=== PATIENT | female | born 1970 | race Hispanic/Latino ===

== ENCOUNTER 2021-06-18 11:26 | Emergency (ER) | payer BC ==
[2021-06-18 12:03] LABS: Urine Blood Negative (Negative); Urine Glucose Negative (Negative); Urine Protein Negative (Negative)
[2021-06-18 12:36] LABS: Basophils % 0.7 % (0-1.3); Hematocrit 38.6 % (36.0-45.0); Lymphocytes % 23.7 % (15.3-44.8); MPV 11.5 fL (7.6-11.3); RBC Red Blood Cell Count 4.14 M/uL (3.86-4.86)
[2021-06-18] MEDS ORDERED: MORPHINE 4 MG/ML SYR ONE (12:47)
[2021-06-18] MEDS ORDERED: ONDANSETRON 4 MG/2 ML VIAL ONE (12:47)
[2021-06-18 12:51] LABS: ALT/SGPT 41 U/L (12-78); AST/SGOT 22 U/L (15-37); Albumin 3.3 g/dL (3.4-5.0); Alkaline Phosphatase 72 U/L (45-117); BUN Blood Urea Nitrogen 8 mg/dL (7-18); Bicarbonate 25 mmol/L (21-32); Bilirubin Direct < 0.1 mg/dL (0-0.2); Bilirubin Total 0.4 mg/dL (0.2-1.0); Glucose Level 99 mg/dL (74-106); Lipase 78 U/L (73-393); Potassium 3.8 mmol/L (3.5-5.1); Sodium Level 140 mmol/L (136-145)
[2021-06-18] MEDS ORDERED: DIPHENHYDRAMINE 50 MG/ML VIAL ONE (12:55)
--- NOTE | 2021-06-18 13:22 | RAD REPORT ---
EXAM DESCRIPTION: CTAbdomen Pelvis W Contrast - 06/18/2021 1:11 pm CLINICAL HISTORY: Abdominal pain. ABD PAIN COMPARISON: No comparisons TECHNIQUE: Biphasic CT imaging of the abdomen and pelvis was performed with 100 ml non-ionic IV cont rast. All CT scans are performed using dose optimization technique as appropriate and may include automated exposure control or mA/KV adjustment according to patient size. FINDINGS: The lung bases are clear. The liver demonstrates diffuse fatty infiltration. Spleen, pancreas, adrenal glands and kidneys are w ithin normal limits. No bowel obstruction, free air, free fluid or abscess. Small to moderate umbilical hernia is present containing fat and small amount of localized fluid measuring 12 mm. The appendix is normal. No evide nce of significant lymphadenopathy. No suspicious bony findings. IMPRESSION: No acute intra-abdominal or pelvic finding. Fatty liver. Moderate umbilical hernia containing fat and a small amount of localized fluid.
[2021-06-18] MEDS ORDERED: FENTANYL CITR 100 MCG/2 ML ONE (14:27)
[2021-06-18] MEDS ORDERED: DIAZEPAM 10 MG/2 ML INJ SYRINGE ONE (14:28)
[2021-06-18] MEDS ORDERED: KETOROLAC 30 MG/ML INJ ONE (14:28)
--- NOTE | 2021-06-18 14:47 | ER ---
Nurse's Notes [facility] Name: Liliane Mishra Age: 51 yrs Sex: Female : 1970 Arrival Date: 06/18/2021 Time: 11:27 Bed 28 Private MD: Diagnosis: Umbilical hernia without obstruction or gangrene Presentation: 06/18 11:40 Chief complaint: Patient states: i am having pain in my stomach and it started Wednesday. tw2 I called Dr. Agrawal over the phone because i am unvaccinated. i felt numb on Wednesday but the pain got worse. +N I am going to have an endoscopy Wednesday but the pain is worse. i also feel bloated. Coronavirus screen: At this time, the client does not indicate any symptoms associated with coronavirus-19. Ebola Screen: Patient denies travel to an Ebola-affected area in the 21 days before illness onset. Initial Sepsis Screen: Does the patient meet any 2 criteria? No. Patient's initial sepsis screen is negative. Does the patient have a suspected source of infection? No. Patient's initial sepsis screen is negative. Risk Assessment: Do you want to hurt yourself or someone else? Patient reports no desire to harm self or others. Onset of symptoms was June 18, 2021. 11:40 Method Of Arrival: Ambulatory tw2 11:40 Acuity: PALAK 3 tw2 Triage Assessment: 11:43 General: Appears in no apparent distress. uncomfortable, obese, Behavior is calm, tw2 cooperative, appropriate for age. Pain: Complains of pain in abdomen. GI: Reports lower abdominal pain, nausea. HEAD OF PHYSICS: 15:18 LMP N/A - tw2 Historical: - Allergies: 11:43 No Known Allergies; tw2 - Home Meds: 11:43 None [Active]; tw2 - PMHx: 11:43 None; tw2 - PSHx: 11:43 section; tw2 - Immunization history:: Client reports having NOT received the Covid vaccine. - Social history:: Smoking status: Patient denies any tobacco usage or history of. Screenin:47 Abuse screen: Denies threats or abuse. Nutritional screening: No deficits noted. tw2 Tuberculosis screening: No symptoms or risk factors identified. Fall Risk None identified. Assessment: 12:09 GI: Reports lower abdominal pain, upper abdominal pain, nausea, pt denies vomiting. Pt oh consistently pressing on her stomach. when ask if that provides relief, she states she doesn't know. symptoms started on Wednesday, pt google her symptoms and called up an endoscopy. state they can't see her because she is unvaccinated. 12:12 GI: Bowel sounds present X 4 quads. Abd is soft. oh 12:41 Reassessment: pt reports SOB, after pushing zofran \T\ morphine. At pt bedside, rhythm oh normal, 02 100. benadrul given. MD called to pt bedside. Vital Signs: 11:40 BP 137 / 75; Pulse 74; Resp 17; Temp 98.1; Pulse Ox 99% on R/A; Weight 102.06 kg; tw2 Height 5 ft. 1 in. (154.94 cm); Pain 10/10; 12:27 BP 147 / 88; Pulse 70; Resp 19; Pulse Ox 100% on R/A; oh 12:30 BP 158 / 84; Pulse 57; Resp 20; Pulse Ox 100% on R/A; oh 14:33 BP 103 / 66; Pulse 53; Resp 17; Pulse Ox 98% on R/A; oh 11:40 Body Mass Index 42.51 (102.06 kg, 154.94 cm) tw2 ED Course: 11:27 Patient arrived in ED. ds1 11:42 Triage completed. tw2 11:42 Arm band placed on. tw2 11:46 Pedro Pablo Childers PA is PHCP. jmm 11:47 Son Crowley MD is Attending Physician. jmm 11:47 Minda Hollis, RN is Primary Nurse. tw2 11:47 Bed in low position. Call light in reach. tw2 11:54 Primary Nurse role handed off by Minda Hollis, RN oh 11:54 Jhoana Ruiz, IVETTE is Primary Nurse. oh 12:12 Urine --Ancillary (enter results) Sent. oh 13:11 CT Abd/Pelvis - IV Contrast Only In Process Unspecified. EDMS 14:45 Balaji Araujo MD is Referral Physician. jmm 15:18 IV discontinued, bleeding controlled, Pressure dressing applied. oh 15:18 No provider procedures requiring assistance completed. oh Administered Medications: 12:19 Drug: Zofran (Ondansetron) 4 mg Route: IVP; Site: left antecubital; oh 15:02 Follow up: Response: No adverse reaction oh 12:20 Drug: morphine 4 mg Route: IVP; Site: left antecubital; oh 15:02 Follow up: Response: Adverse reaction, Physician notified oh 12:29 Drug: Benadryl (diphenhydrAMINE) 25 mg Route: IVP; Site: left antecubital; oh 15:01 Follow up: Response: No adverse reaction oh 14:08 Drug: Ketorolac 30 mg Route: IVP; Site: left antecubital; oh 15:01 Follow up: Response: No adverse reaction oh 14:08 Drug: fentaNYL (PF) 25 mcg Route: IVP; Site: left antecubital; oh 15:02 Follow up: Response: No adverse reaction oh 14:08 Drug: Valium (diazepam) 5 mg Route: IVP; Site: left antecubital; oh 15:01 Follow up: Response: No adverse reaction oh Point of Care Testing: Urine : 12:13 hCG Reading: Negative; oh Outcome: 14:46 Discharge ordered by MD. toribio 15:18 Discharged to home oh 15:18 Condition: stable 15:18 Discharge instructions given to patient. 15:18 Patient left the ED. oh Signatures: Dispatcher [employer] EDPedro Pablo Frank PA PA jmm Sanford, Demi ds1 Minda Hollis RN RN tw2 Jhoana Ruiz RN RN oh
--- NOTE | 2021-06-18 14:47 | EDPHYS ---
Physician Documentation [facility] Name: Liliane Mishra Age: 51 yrs Sex: Female : 1970 Arrival Date: 06/18/2021 Time: 11:27 Bed 28 Private MD: ED Physician Son Crowley HPI: 06/18 12:03 This 51 yrs old Female presents to ER via Ambulatory with complaints of jmm Abdominal Pain. 12:03 The patient presents with abdominal pain. Onset: The symptoms/episode began/occurred jmm gradually, 1 week(s) ago. The symptoms do not radiate. Associated signs and symptoms: Pertinent negatives: fever, vomiting. The symptoms are described as achy, intermittent, sharp. Is a 51-year-old female with no chronic medical condition presents emerged part with complaints of generalized abdominal pain which is worsened over the past week. Patient states she initially had a sensation of numbness on her abdomen and it has now progressed to pain radiating to her thighs. Patient denies any bowel or bladder issues, denies fever, denies back pain. Denies vomiting or diarrhea.. CHOKE SETTER: 15:18 LMP N/A - tw2 Historical: - Allergies: 11:43 No Known Allergies; tw2 - Home Meds: 11:43 None [Active]; tw2 - PMHx: 11:43 None; tw2 - PSHx: 11:43 section; tw2 - Immunization history:: Client reports having NOT received the Covid vaccine. - Social history:: Smoking status: Patient denies any tobacco usage or history of. ROS: 12:03 Constitutional: Negative for fever, chills, and weight loss, Cardiovascular: Negative jmm for chest pain, palpitations, and edema, Respiratory: Negative for shortness of breath, cough, wheezing, and pleuritic chest pain. 12:03 Abdomen/GI: Positive for abdominal pain. 12:03 All other systems are negative. Exam: 12:03 Constitutional: This is a well developed, well nourished patient who is awake, alert, jmm and in no acute distress. Head/Face: atraumatic. Eyes: EOMI, no conjunctival erythema appreciated ENT: Moist Mucus Membranes Neck: Trachea midline, Supple Chest/axilla: Normal chest wall appearance and motion. Cardiovascular: Regular rate and rhythm. No edema appreciated Respiratory: Normal respirations, no respiratory distress appreciated 12:03 Abdomen/GI: Inspection: obese Bowel sounds: normal, Palpation: soft, moderate abdominal tenderness, in the suprapubic area, right lower quadrant and left lower quadrant. 12:03 Back: ROM is normal. 12:03 Musculoskeletal/extremity: ROM: intact in all extremities. 12:03 Skin: Appearance: Color: normal in color. 12:03 Neuro: Orientation: is normal, Mentation: is normal, Memory: is normal. 12:03 Psych: Behavior/mood is pleasant, cooperative, anxious. Vital Signs: 11:40 BP 137 / 75; Pulse 74; Resp 17; Temp 98.1; Pulse Ox 99% on R/A; Weight 102.06 kg; tw2 Height 5 ft. 1 in. (154.94 cm); Pain 10/10; 12:27 BP 147 / 88; Pulse 70; Resp 19; Pulse Ox 100% on R/A; oh 12:30 BP 158 / 84; Pulse 57; Resp 20; Pulse Ox 100% on R/A; oh 14:33 BP 103 / 66; Pulse 53; Resp 17; Pulse Ox 98% on R/A; oh 11:40 Body Mass Index 42.51 (102.06 kg, 154.94 cm) tw2 MDM: 12:04 Patient medically screened. malu 14:45 Data reviewed: vital signs, nurses notes. Counseling: I had a detailed discussion with malu the patient and/or guardian regarding: the historical points, exam findings, and any diagnostic results supporting the discharge/admit diagnosis, lab results, radiology results, the need for outpatient follow up, to return to the emergency department if symptoms worsen or persist or if there are any questions or concerns that arise at home. ED course: I discussed the patient with Dr. Araujo who will follow up with the patient on Wednesday in clinic. Patient otherwise given strict return precautions. Patient understood agrees plan of care.. 06/18 12:03 Order name: Urine Dipstick-Ancillary; Complete Time: 12:19 EDMS 06/18 12:04 Order name: Urine --Ancillary (enter results); Complete Time: 12:30 bd 06/18 12:10 Order name: Basic Metabolic Panel; Complete Time: 12:54 jm 06/18 12:10 Order name: CBC with Diff; Complete Time: 12:54 [facility] 06/18 12:10 Order name: Hepatic Function; Complete Time: 12:54 [facility] 06/18 12:10 Order name: Lipase; Complete Time: 12:54 [facility] 06/18 12:10 Order name: IV Saline Lock; Complete Time: 12:37 [facility] 06/18 12:19 Order name: CT Abd/Pelvis - IV Contrast Only; Complete Time: 13:25 [facility] 06/18 12:10 Order name: Labs collected and sent; Complete Time: 12:37 [facility] Administered Medications: 12:19 Drug: Zofran (Ondansetron) 4 mg Route: IVP; Site: left antecubital; oh 15:02 Follow up: Response: No adverse reaction oh 12:20 Drug: morphine 4 mg Route: IVP; Site: left antecubital; oh 15:02 Follow up: Response: Adverse reaction, Physician notified oh 12:29 Drug: Benadryl (diphenhydrAMINE) 25 mg Route: IVP; Site: left antecubital; oh 15:01 Follow up: Response: No adverse reaction oh 14:08 Drug: Ketorolac 30 mg Route: IVP; Site: left antecubital; oh 15:01 Follow up: Response: No adverse reaction oh 14:08 Drug: fentaNYL (PF) 25 mcg Route: IVP; Site: left antecubital; oh 15:02 Follow up: Response: No adverse reaction oh 14:08 Drug: Valium (diazepam) 5 mg Route: IVP; Site: left antecubital; oh 15:01 Follow up: Response: No adverse reaction oh Point of Care Testing: Urine : 12:13 hCG Reading: Negative; oh Disposition: 23:44 Co-signature as Attending Physician, Son Crowley MD I agree with the assessment and kdr plan of care. Disposition Summary: 06/18/21 14:46 Discharge Ordered Location: Home [facility] Condition: Stable [facility] Diagnosis - Umbilical hernia without obstruction or gangrene [facility] Followup: [facility] - With: Balaji Araujo MD - When: This Wednesday - Reason: Discharge Instructions: - Discharge Summary Sheet [facility] - Hernia, Adult [facility] Forms: - Medication Reconciliation Form [facility] - Thank You Letter [facility] - Work release form [facility] - Antibiotic Education [facility] - Prescription Opioid Use jmm Prescriptions: - Ultracet 37.5-325 mg Oral Tablet - take 1 tablet by ORAL route every 6 hours - for up to 5 days; do not exceed 8 jmm tablets per day.; 20 tablet; Refills: 0, Product Selection Permitted Signatures: Dispatcher [employer] Son Zuniga MD MD kdr Mickail, Joel, PA PA jmm Wise, Tara, RN RN tw2 Jhoana Ruiz RN RN oh
[2021-06-18 15:23] VITALS: TEMP 98.1
[2021-06-18 15:27] VITALS: BP 103/66; O2SAT 98
== END 2021-06-18 15:18 | disposition home or self-care (01) ==
LOC: ER 11:26
DX: K42.9 Umbilical hernia without obstruction or gangrene (principal)
CPT/HCPCS: 85025; 80048; 36415; 81025; 80076; 81003; 83690; 74177; Q9967; J1200; J3360; J3010; J2405; 93005

== ENCOUNTER 2021-06-25 11:03 | Day surgery (SDC) | payer BC ==
[2021-06-24 12:13] LABS: Basophils % 0.6 % (0-1.3); Hematocrit 39.5 % (36.0-45.0); Lymphocytes % 23.5 % (15.3-44.8); MPV 11.5 fL (7.6-11.3); RBC Red Blood Cell Count 4.21 M/uL (3.86-4.86)
[2021-06-24 12:22] LABS: Potassium 3.7 mmol/L (3.5-5.1)
--- NOTE | 2021-06-24 15:08 | RAD REPORT ---
EXAM DESCRIPTION: RAD - Chest Pa And Lat (2 Views) - 06/24/2021 12:55 pm CLINICAL HISTORY: PREOP, SAME DAY SURGERY, pending hernia surgery COMPARISON: Portable April 2015 TECHNIQUE: Frontal and lateral views of the chest were obtained. FINDINGS: The lungs are clear of a peripheral mass, consolidation or significant failure finding. Mi ld prominence of the interstitial pattern matches comparison. Trachea is midline. No maral mass or lymphadenopathy. Heart size is normal and central vasculature i s within normal limits. No pleural effusion or pneumothorax seen. No acute bony finding noted. No aortic abnormality. IMPRESSION: No acute cardiopulmonary process.
--- NOTE | 2021-06-24 16:41 | EKG ---
Test Date: 2021-06-24 Test Time: 10:28:17 Fireman Helper: EPHRAIM MEASUREMENT RESULTS: Intervals: Rate: 55 IN: 154 QRSD: 78 QT: 424 QTc: 405 Sterling: P: 49 IN: 154 QRS: 41 T: 20 INTERPRETIVE STATEMENTS: Sinus bradycardia Otherwise normal ECG Compared to ECG 06/18/2021 13:27:58 No significant changes Electronically Signed On 06-24-21 16:40:50 CDT by Sunday Quintana
[2021-06-25] MEDS ORDERED: Ringers Lactate 1,000 ML IV ONE (11:43)
[2021-06-25 11:55] LABS: Specific Gravity 1.025 (1.005-1.030)
[2021-06-25] MEDS ORDERED: FENTANYL CITR 100 MCG/2 ML ONE (11:58)
[2021-06-25] MEDS ORDERED: propofoL 200 MG/20 ML VIAL IV ONE (11:58)
[2021-06-25] MEDS ORDERED: LIDOCAINE 2% MPF 5 ML VIAL ONE (11:58)
[2021-06-25] MEDS ORDERED: MIDAZOLAM HCL 2 MG/2 ML INJ ONE (11:58)
[2021-06-25] MEDS ORDERED: ONDANSETRON 4 MG/2 ML VIAL ONE ×2 (11:58→13:33)
[2021-06-25] MEDS ORDERED: CELECOXIB 100 MG CAPSULE ONE (12:04)
[2021-06-25] MEDS ORDERED: ACETAMINOPHEN 500 MG TAB ONE (12:04)
[2021-06-25] MEDS: CEFAZOLIN/NS 1gm 1 GM/50 ML BAG ONE ×2 (12:06→12:10)
[2021-06-25] MEDS ORDERED: ROCURONIUM 50 MG/5 ML VIAL IV ONE (12:27)
[2021-06-25] MEDS ORDERED: dexAMETHasone 10 MG/ML VIAL ONE (12:46)
--- NOTE | 2021-06-25 12:52 | P.BOP ---
Preoperative diagnosis: tender incarcerated umbilical hernia Postoperative diagnosis: same Primary procedure: Open repair tender incarcerated umbilical hernia Head Refrigeration Engineer: Bailey Tello) Estimated blood loss: <10cc Specimen: hernia sac Findings: incarcerated umbilical hernia with omentum Anesthesia: General Complications: None Transferred to: Recovery Room Condition: Good
[2021-06-25] MEDS: HYDROMORPHONE HCL 1 MG/ML INJ ONE ×4 (13:10→13:35)
[2021-06-25] MEDS ORDERED: GLYCOPYRROLATE 0.2 MG/ML SYR ONE ×2 (13:11)
[2021-06-25] MEDS ORDERED: NEOSTIGMINE 1 MG/ML -5 ML ONE ×2 (13:12→13:13)
--- NOTE | 2021-06-25 13:45 | DS ---
Diagnosis: Tender incarcerated umbilical hernia. Procedure: Open repair of tender incarcerated umbilical hernia. Disposition: Home. Activity: As tolerated. No heavy lifting. Plan: Follow up in my office in 1 week. Call for appointment at [phone]. Keep area dry for 48 dahiana rs, then may shower. Keep Steri-Strips intact. Medications: Include Tylenol No. 3 q.4 hours p.r.n. pain, Bactrim DS p.o. b.i.d. We noted in the umbilical region when we opened the abdomen has a lot of content in it, sebaceous con tents. We were able to take some amount of time just to clean the belly button and we also counseled the patient in the future about how to just go deep inside and make sure that the belly button is cl kiet to a diminished amount of bacteria overgrowth. ROSA/GUILLERMO Voice ID: [id number] Report ID: [id number]
--- NOTE | 2021-06-25 13:46 | OP ---
Date of Procedure: 06/25/2021 Surgeon: Balaji Araujo MD It Analyst: BYRON Wyman. Preoperative Diagnosis: Tender incarcerated umbilical hernia. Postoperative Diagnosis: Tender incarcerated umbilical hernia. Procedure: Open repair of tender incarcerated umbilical hernia. Estimated Blood Loss: Less than 10 mL. Specimen: Hernia sac and content. Findings: Incarcerated umbilical hernia with omentum. Anesthesia: General plus local. Indication: This is the case of a 51-year-old patient with a kind of very tender umbilical hernia, c annot be reduced. So benefits, alternatives, and risks of repair with possible mesh were fully expla ined, which include, but not limited to infection, bleeding, damage to adjacent structures, anesthesi a complication, recurrence, DE, and even . She also understood this may not relieve any symptom s. She might need more than one surgical intervention. She understood, signed a consent. Procedure In Detail: The patient was brought to the operating room, placed in supine position. Anes thesia was done without complication. Abdominal area was prepped and draped in usual sterile fashion . Local anesthesia was applied after time-out followed by a curvilinear incision on the periumbilica l region. The incision was carried down to fascia. We noticed the hernia sac, removed from the umbi lical skin. Opened the hernia sac. After we reduced some of the content, the rest was ligated. No bleeding. Omentum was allowed to reduce back into the abdominal cavity. Fatty content and hernia sa c were carefully removed. Fascial edges were cleaned. Then, we proceeded to identify the hernia fas cial edges to be strong enough, so we do not have to repair that with mesh. So we just repaired that simpler with a #1 Prolene in a [id number] fashion multiple times. The area was irrigated. Sub cutaneous tissue closed with 3-0 chromic and skin in a subcuticular fashion with 3-0 chromic and Ster i-Strips on top. Sponge count and instrument counts correct. The patient tolerated the procedure we ll. The patient was sent to recovery in stable condition. ROSA/GUILLERMO Voice ID: [id number] Report ID: [id number]
[2021-06-25 13:57] VITALS: TEMP 97.4; O2SAT 99
[2021-06-25] MEDS ORDERED: CODEINE 30MG/APAP 300MG TAB ONE (14:26)
[2021-06-25 14:56] VITALS: BP 105/74
== END 2021-06-25 14:50 | disposition home or self-care (01) ==
LOC: OR 11:03
PROVIDERS: ATTEND Surgery
PROC: 0WQF0ZZ Repair Abdominal Wall, Open Approach (ICD-10-PCS; principal; 2021-06-25 12:45)
DX: K42.0 Umbilical hernia with obstruction, without gangrene (principal); Z20.822 Contact with and (suspected) exposure to COVID-19
CPT/HCPCS: 93005; 85025; 80048; 36415; 81025; 88302; 71046; 49587; U0003; J2704; J2250; J3010; J1100; J1170 ×2; J2710 ×2; J0690; J7120; J2405 ×2

== ENCOUNTER 2021-11-10 07:09 | Day surgery (SDC) | payer BC ==
[2021-11-10 07:36] LABS: Specific Gravity 1.025 (1.005-1.030)
[2021-11-10] MEDS: Ringers Lactate 1,000 ML IV ONE ×2 (08:11→08:22)
[2021-11-10] MEDS ORDERED: propofoL 200 MG/20 ML VIAL IV ONE ×2 (08:17)
[2021-11-10] MEDS ORDERED: LIDOCAINE 1% MPF 5 ML VIAL ONE (08:17)
--- NOTE | 2021-11-10 09:00 | ENDO RPT ---
[address], [address] COLONOSCOPY PROCEDURE REPORT EXAM DATE: 11/10/2021 PATIENT NAME: Liliane Mishra MR #: [id number] BIRTHDATE: 1970 ATTENDING: Balaji Araujo MD STATUS: outpatient CLAM SHUCKING MACHINE TENDER: Joseph Park CST and Snehal Seo RN INDICATIONS: The patient is a 51 yr old Female here for a colonoscopy due to colon cancer screening PROCEDURE PERFORMED: Colonoscopy MEDICATIONS: Per Anesthesia. ESTIMATED BLOOD LOSS: None CONSENT: The patient understands the risks and benefits of the procedure and understands that these risks include, but are not limited to: sedation, allergic reaction, infection, perforation and/or bleeding. Alternative means of evaluation and treatment include, among others: physical exam, x-rays, and/or surgical intervention. The patient elects to proceed with this endoscopic procedure. DESCRIPTION OF PROCEDURE: During intra-op preparation period all mechanical medical equipment was checked for proper function. Hand hygiene and appropriate measures for infection prevention was taken. Procedure, possible complications, alternatives including, but not limited to possibility of bleeding, perforation, tear, infection, sepsis, need for surgery, need for blood transfusion, were explained to the patient. After the risks, benefits and alternatives of the procedure were thoroughly explained, Informed consent was verified, confirmed and timeout was successfully executed by the treatment team. The patient was placed in the left lateral position. A digital rectal exam was performed and revealed external hemorrhoids. After appropriate level of anesthesia, the scope was passed. The EC-[id number] ([id number]) endoscope was introduced through the anus and advanced to the cecum, which was identified by transillumination from the light source, the appendix, and the ileocecal valve. The quality of the prep was good. The instrument was then slowly withdrawn as the colon was fully examined. Scope withdrawal time was . COLON FINDINGS: Diverticula was found in the descending colon. The opening was small. Melanosis coli was found throughout the entire examined colon. Retroflexed views revealed no abnormalities. The scope was then completely withdrawn from the patient and the procedure terminated. ADVERSE EVENTS: There were no complications. IMPRESSIONS: 1. Diverticula in the descending colon 2. Melanosis coli was found throughout the entire examined colon RECOMMENDATIONS: follow-up: office 1-2 week(s) RECALL: Return in 5-10 year(s) for Colonoscopy. Balaji Araujo MD eSigned: Balaji Araujo MD 11/10/2021 9:00 AM cc: Balaji Araujo M.D. CPT CODES: ICD9 CODES: PATIENT NAME: Liliane Mishra MR#: [id number]
[2021-11-10 09:25] VITALS: O2SAT 100
[2021-11-10 09:41] VITALS: BP 112/69; TEMP 97
== END 2021-11-10 09:22 | disposition home or self-care (01) ==
LOC: OR 07:09
PROVIDERS: ATTEND Surgery
PROC: 0DJD8ZZ Inspection of Lower Intestinal Tract, Via Natural or Artificial Opening Endoscopic (ICD-10-PCS; principal; 2021-11-10 08:30)
DX: Z12.11 Encounter for screening for malignant neoplasm of colon (principal); K64.4 Residual hemorrhoidal skin tags; K57.30 Diverticulosis of large intestine without perforation or abscess without bleeding; K63.89 Other specified diseases of intestine; Z20.822 Contact with and (suspected) exposure to COVID-19
CPT/HCPCS: 81025; 45378; U0003; J2704 ×2; J7120